=== PATIENT | male | born 1975 | race Caucasian/White ===

== ENCOUNTER 2024-12-12 20:43 | Emergency (ER) | payer SELFPAY ==
[~2024-12-12] VITALS: Ht 172.7 cm; Wt 82.0 kg
[2024-12-12 20:58] VITALS: BP 154/98; PULSE 88; RESP 16; TEMP 36.8; O2SAT 98
[2024-12-12] MEDS: HYDROMORPHONE HCL/PF 2MG/ML INJ IM ONE (22:59)
[2024-12-12] MEDS: KETOROLAC 15MG/ML VIAL IM ONE (22:59)
[2024-12-12] MEDS ORDERED: IBUP-2029 MT (23:47)
[2024-12-12] MEDS ORDERED: HYDR-4001 MT (23:47)
[2024-12-12] MEDS ORDERED: TOPUD PO (23:47)
== END 2024-12-13 00:35 | disposition home or self-care (01) ==
LOC: ER 20:43
DX: S82.892A Other fracture of left lower leg, initial encounter for closed fracture (principal); M25.472 Effusion, left ankle; I10 Essential (primary) hypertension; Z79.899 Other long term (current) drug therapy; W01.0XXA Fall on same level from slipping, tripping and stumbling without subsequent striking against object, initial encounter; Y93.89 Activity, other specified; Y92.89 Other specified places as the place of occurrence of the external cause; Y99.8 Other external cause status
CPT/HCPCS: 99284; 29515; 73610; 96372; J1885; J1171; A6449